=== PATIENT | female | born 2000 | race American Indian/Alaskan Native ===

== ENCOUNTER 2020-12-28 14:07 | Emergency (ER) | payer OTHER ==
[2020-12-28 18:12] VITALS: BP 131/68
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
== END 2020-12-28 18:20 | disposition home or self-care (01) ==
LOC: ED 14:07
DX: M25.512 Pain in left shoulder (principal); M54.5 Low back pain; M79.18 Myalgia, other site; Z79.899 Other long term (current) drug therapy; V87.7XXA Person injured in collision between other specified motor vehicles (traffic), initial encounter; Y93.89 Activity, other specified; Y92.488 Other paved roadways as the place of occurrence of the external cause; Y99.8 Other external cause status
CPT/HCPCS: 99281